=== PATIENT | male | born 1980 | race Caucasian/White ===

== ENCOUNTER 2016-06-13 15:41 | Emergency (ER) | payer SELFPAY ==
[~2016-06-13] VITALS: Ht 182.9 cm; Wt 68.0 kg
[2016-06-13 15:44] VITALS: BP 138/81; PULSE 94; RESP 16; TEMP 97.8; O2SAT 98
--- NOTE | 2016-06-13 16:18 | PD ---
HPI Chief Complaint: Skin Problem Time Seen by Provider: 16:07 Travel History International Travel<30 days: No Contact w/Intl Traveler<30days: No Traveled to known affect area: No History of Present Illness HPI 36-year-old male with history of bipolar disorder presents to the emergency room voluntarily for evaluation of suicidal ideation. Patient states he has been depressed since his mother 2 months ago. States he was kicked out of his house in [place] 1 week ago and has since developed suicidal ideation. He came down from [place] yesterday, sleeping last night on the bus. States he came to [place] because he has a cousin here. His plan is to overdose on medication. Patient uses Xanax and K2 recreationally. History of alcohol abuse. He last drink 1 pint of vodka yesterday. Denies any alcohol use today. Denies any other illicit drug use. Denies hallucinations or delusions. States he was on Depakote when he was 17 years old but has not been on it since because he cannot afford it. Patient presents to the ED with cleanser all over his face stating he was concerned about blisters. [facility] Social History Tobacco Use: Yes Allergies-Medications (Allergen,Severity, Reaction): Coded Allergies: No Known Allergies (Unverified , 06/13/16) Reported Meds & Prescriptions Reported Meds & Active Scripts Active No Active Prescriptions or Reported Medications Review of Systems Except as stated in HPI: all other systems reviewed are Neg Physical Exam Narrative GENERAL: Well-nourished, well-developed male in no acute distress. Afebrile. Ambulatory. SKIN: Warm and dry. No facial blisters. HEAD: Normocephalic. EYES: No scleral icterus. No injection or drainage. NECK: Supple, trachea midline. No JVD or lymphadenopathy. CARDIOVASCULAR: Regular rate and rhythm without murmurs, gallops, or rubs. RESPIRATORY: Breath sounds equal bilaterally. No accessory muscle use. PSYCHIATRIC: No delusional thought processes. No hallucinations. Data Data Last Documented VS Vital Signs Date Time Temp Pulse Resp B/P Pulse Ox O2 Delivery O2 Flow Rate FiO2 06/13/16 15:55 16 06/13/16 15:44 97.8 94 138/81 98 Orders Complete Blood Count With Diff (06/13/16 16:04) Basic Metabolic Panel (Bmp) (06/13/16 16:04) Drug Screen, Random Urine (06/13/16 16:04) Alcohol (Ethanol) (06/13/16 16:04) Psych Screen (06/13/16 16:04) Labs Laboratory Tests Test 06/13/16 06/13/16 16:10 17:55 White Blood Count 5.9 TH/MM3 Red Blood Count 4.28 MIL/MM3 Hemoglobin 12.8 GM/DL Hematocrit 38.5 % Mean Corpuscular Volume 90.0 FL Mean Corpuscular Hemoglobin 30.0 PG Mean Corpuscular Hemoglobin 33.3 % Concent Red Cell Distribution Width 14.0 % Platelet Count 178 TH/MM3 Mean Platelet Volume 7.8 FL Neutrophils (%) (Auto) 52.0 % Lymphocytes (%) (Auto) 33.1 % Monocytes (%) (Auto) 8.7 % Eosinophils (%) (Auto) 5.6 % Basophils (%) (Auto) 0.6 % Neutrophils # (Auto) 3.1 TH/MM3 Lymphocytes # (Auto) 1.9 TH/MM3 Monocytes # (Auto) 0.5 TH/MM3 Eosinophils # (Auto) 0.3 TH/MM3 Basophils # (Auto) 0.0 TH/MM3 CBC Comment DIFF FINAL Differential Comment Sodium Level 143 MEQ/L Potassium Level 3.9 MEQ/L Chloride Level 106 MEQ/L Carbon Dioxide Level 31.1 MEQ/L Anion Gap 6 MEQ/L Blood Urea Nitrogen 13 MG/DL Creatinine 0.98 MG/DL Estimat Glomerular Filtration 88 ML/MIN Rate Random Glucose 93 MG/DL Calcium Level 8.8 MG/DL Ethyl Alcohol Level LESS THAN 3 MG/DL Urine Opiates Screen NEG Urine Barbiturates Screen NEG Urine Amphetamines Screen NEG Urine Benzodiazepines Screen NEG Urine Cocaine Screen NEG Urine Cannabinoids Screen NEG MDM Medical Decision Making Medical Screen Exam Complete: Yes Emergency Medical Condition: Yes Medical Record Reviewed: Yes Differential Diagnosis Suicidal ideation versus hallucinations versus schizophrenia versus bipolar disorder Narrative Course 36-year-old male with history of bipolar disorder presents to the emergency room voluntarily for evaluation of suicidal ideation. His plan is to overdose on medication. States he has been suicidal since his mother 2 months ago and he was kicked out of his house one week ago. Patient arrived from [place] to [place] this morning and slept on the bus last night. Concern for malingering. Patient is not taking any medication. He also reports concern for blisters on his face and presents with facial cleanser on his face. After having him remove the cleanser, there are no blisters or skin disturbances present. CBC and BMP are unremarkable. EtOH is negative. Drug screen is negative. Patient is medically cleared for psychiatric evaluation and disposition this time. Diagnosis Primary Impression: Medical clearance for psychiatric admission Scripts No Active Prescriptions or Reported Meds Condition: Gabbie Manjarrez Jun 13, 2016 16:18
[2016-06-13 16:19] LABS: AUTOMATED NEUTROPHIL # 3.1 TH/MM3 (1.8-7.7); BASOPHIL % 0.6 % (0.0-2.0); EOSINOPHIL # 0.3 TH/MM3 (0-0.4); EOSINOPHIL % 5.6 % (0.0-4.0); HEMATOCRIT 38.5 % (39.0-51.0); HEMO FLAGS DIFF FINAL; LYMPH % 33.1 % (9.0-44.0); LYMPHOCYTE # 1.9 TH/MM3 (1.0-4.8); MEAN CORPUSCULAR HGB CONC 33.3 % (32.0-36.0); MONO % 8.7 % (0.0-8.0); PLATELET COUNT 178 TH/MM3 (150-450); RED BLOOD COUNT 4.28 MIL/MM3 (4.50-5.90); WHITE BLOOD COUNT 5.9 TH/MM3 (4.0-11.0)
[2016-06-13 17:11] LABS: ANION GAP 6 MEQ/L (5-15); BICARBONATE 31.1 MEQ/L (21.0-32.0); BLOOD UREA NITROGEN 13 MG/DL (7-18); CHLORIDE 106 MEQ/L (98-107); GLOMERULAR FILTRATION RATE 88 ML/MIN (>89); POTASSIUM 3.9 MEQ/L (3.5-5.1); SODIUM (NA) 143 MEQ/L (136-145)
[2016-06-13 18:21] LABS: AMPHETAMINE, URINE NEG (NEG); BARBITURATES, URINE NEG (NEG); COCAINE, URINE NEG (NEG)
[2016-06-13 23:01] VITALS: BP 140/80; PULSE 88; RESP 18; O2SAT 97
[2016-06-14 02:42] VITALS: BP 102/52; PULSE 55; RESP 16
[2016-06-14 06:27] VITALS: BP 102/63; PULSE 67; RESP 16; O2SAT 99
[2016-06-14 10:40] VITALS: BP 100/50; PULSE 53; RESP 16; O2SAT 98
--- NOTE | 2016-06-14 13:00 | PD ---
History of Present Illness Chief Complaint: Psychiatric Symptoms Time Seen by Provider: 12:45 Travel History International Travel<30 Days: No Contact w/Intl Traveler<30days: No Known affected area: No Legal Status Legal Status: Voluntary History of Present Illness: History of Present Illness 36-year-old male with a reported history of bipolar disorder who presents to the emergency room voluntarily for psychiatric evaluation. As per ed documentation the patient's mother 2 months ago and he was thrown out of the family home. He took a bus to [place] and arrived here to stay with a cousin. reported suicidal ideation x 1 week with plan of overdosing on medication. He reported use of alcohol, Xanax and K 2. presents with negative toxicology Patient has been monitored in [facility]. no behavioral concerns and no suicidality. he slept well and ate well. Patient this morning is alert and oriented. Calm and cooperative. Appears to be of low intellectual functioning. Speech is clear . He does not appear to be responding to internal stimuli. Does not endorse any hallucinations or delusions. He reports that his mother 2 months ago and that he came to [place] " because it's warm here". His suicidal thoughts began " a couple of days ago". He has not acted on such thoughts. He reports feeling sadness over his mother's . No social ideation or plan at this time. In terms of previous history he states he was hospitalized in the past but unable to tell me how long ago. When I asked about previous symptoms he is unable to provide any specific symptoms. PFSH Past Medical History Chest Pain: Yes Tetanus Vaccination: > 5 Years Influenza Vaccination: Yes (UNKNOWN DATE ) Psychiatric History Psychiatric History Hx Psychiatric Treatment: DENIED HX Later reported one prior hosp History of Inpatient Treatment: Yes (In [place] ) Guns or firearms in home: No Social History Single male, recently relocated to [facility]. Hx Alcohol Use: Yes ("A LOT") Hx Tobacco Use: Yes Hx Substance Use: Yes Substance Use Type: Alcohol, Marijuana, Nicotine/Cigarettes Hx of Substance Use Treatment: No Family Psychiatric History None reported. Allergies-Medications (Allergen,Severity, Reaction): Coded Allergies: No Known Allergies (Unverified , 06/13/16) Reported Meds & Prescriptions Reported Meds & Active Scripts Active No Active Prescriptions or Reported Medications Review of Systems Except as stated in HPI: all other systems reviewed are Neg Exam Alert: Yes [place]: Person (ox4) Mood: Calm Affect: Euthymic Speech: Clear, Logical Eye Contact: Normal Memory Intact: Comment (denies any) Hallucinations: Other (denies) Delusions: No Suicidal: Ideation (denies any) Homicidal: Ideation (denies any) Insight/Judgement Poor. Poor MDM Medical Decision Making Medical Record Reviewed: Yes Assessment/Plan 36 year old male under a voluntary status for suicidal ideation. At this time patient not presenting any suicidal ideation, intent or plan. No psychosis or kamilla. At this time he does not meet criteria for inpatietn tretametn. Will be discharged with follow up at [facility] tomorrow. Orders Complete Blood Count With Diff (06/13/16 16:04) Basic Metabolic Panel (Bmp) (06/13/16 16:04) Drug Screen, Random Urine (06/13/16 16:04) Alcohol (Ethanol) (06/13/16 16:04) Psych Screen (06/13/16 16:04) Diet Regular Basic (06/14/16 Breakfast) Diet Regular Basic (06/14/16 Lunch) Results Vital Signs Date Time Temp Pulse Resp B/P Pulse Ox O2 Delivery O2 Flow Rate FiO2 06/14/16 10:40 53 16 100/50 98 06/14/16 06:27 67 16 102/63 99 06/14/16 02:42 55 16 102/52 06/13/16 23:01 88 18 140/80 97 Room Air 06/13/16 15:55 16 06/13/16 15:44 97.8 94 16 138/81 98 Laboratory Tests Test 06/13/16 06/13/16 16:10 17:55 White Blood Count 5.9 Red Blood Count 4.28 Hemoglobin 12.8 Hematocrit 38.5 Mean Corpuscular Volume 90.0 Mean Corpuscular Hemoglobin 30.0 Mean Corpuscular Hemoglobin 33.3 Concent Red Cell Distribution Width 14.0 Platelet Count 178 Mean Platelet Volume 7.8 Neutrophils (%) (Auto) 52.0 Lymphocytes (%) (Auto) 33.1 Monocytes (%) (Auto) 8.7 Eosinophils (%) (Auto) 5.6 Basophils (%) (Auto) 0.6 Neutrophils # (Auto) 3.1 Lymphocytes # (Auto) 1.9 Monocytes # (Auto) 0.5 Eosinophils # (Auto) 0.3 Basophils # (Auto) 0.0 CBC Comment DIFF FINAL Differential Comment Sodium Level 143 Potassium Level 3.9 Chloride Level 106 Carbon Dioxide Level 31.1 Anion Gap 6 Blood Urea Nitrogen 13 Creatinine 0.98 Estimat Glomerular Filtration 88 Rate Random Glucose 93 Calcium Level 8.8 Ethyl Alcohol Level LESS THAN 3 Urine Opiates Screen NEG Urine Barbiturates Screen NEG Urine Amphetamines Screen NEG Urine Benzodiazepines Screen NEG Urine Cocaine Screen NEG Urine Cannabinoids Screen NEG Diagnosis Primary Impression: adjustment disorder with depressed mood Psychiatrically Cleared: Yes Prescriptions No Active Prescriptions or Reported Meds Disposition: 01 DISCHARGE HOME Condition: Stable Lisa Donaldson Jun 14, 2016 13:00
[2016-06-14 14:12] VITALS: BP_SYST 138; BP_SYST 98; BP_DIAS 54; BP_DIAS 73; PULSE 55; PULSE 75; RESP 16; O2SAT 97; O2SAT 98
[2016-06-14 15:31] VITALS: BP 98/54; PULSE 55; RESP 16; O2SAT 98
== END 2016-06-14 18:29 | disposition home or self-care (01) ==
LOC: NEPA 15:41 → NEPJ 06-14 18:29
DX: F43.21 Adjustment disorder with depressed mood (principal)
CPT/HCPCS: 80048; 80307; 80320; 85025; 99285

== ENCOUNTER 2016-07-08 11:25 | Emergency (ER) | payer SELFPAY ==
[~2016-07-08] VITALS: Ht 182.9 cm; Wt 70.0 kg
[2016-07-08 11:28] VITALS: BP 96/53; PULSE 78; RESP 20; TEMP 98.1; O2SAT 94
[2016-07-08] MEDS ORDERED: SODIUM CHLOR 0.9% 1000 ML INJ 1,000 ML IV ONE ×2 (11:30)
[2016-07-08] MEDS ORDERED: SODIUM CHLORIDE 0.9% FLUSH 5 ML FLUSH IVF PRN (11:30)
--- NOTE | 2016-07-08 11:32 | PD ---
HPI Chief Complaint: Alcohol/Drug Intoxication Time Seen by Provider: 11:32 Travel History International Travel<30 days: No Contact w/Intl Traveler<30days: No History of Present Illness HPI Patient is a 36-year-old male brought in by the EMS after a passerby saw him sitting on the side of the road. The police were called initially and the police called EMS. Patient admits to drinking alcohol this morning. Patient has no physical complaints at this time. Patient denies any significant past medical history. He denies any IV drug use. Patient further denies any suicidal or homicidal ideations. [facility] Past Medical History Medical History: Denies Significant Hx Chest Pain: Yes Social History Alcohol Use: Yes ("A LOT") Tobacco Use: Yes Substance Use: No Allergies-Medications (Allergen,Severity, Reaction): Coded Allergies: No Known Allergies (Unverified , 06/13/16) Reported Meds & Prescriptions Reported Meds & Active Scripts Active No Active Prescriptions or Reported Medications Review of Systems ROS Limitations: Intoxication Except as stated in HPI: all other systems reviewed are Neg Psychiatric: Positive: Substance Abuse, No: Suicidal Ideations, Homicidal Ideation Physical Exam Narrative GENERAL: Thin, well-developed, intoxicated-appearing white male. Resting comfortably in no acute distress. SKIN: Warm and dry. HEAD: Atraumatic. Normocephalic. EYES: Pupils equal and round. No scleral icterus. No injection or drainage. ENT: No nasal bleeding or discharge. Mucous membranes pink and moist. NECK: Trachea midline. No JVD. CARDIOVASCULAR: Regular rate and rhythm. No murmur appreciated. RESPIRATORY: No accessory muscle use. Clear to auscultation. Breath sounds equal bilaterally. GASTROINTESTINAL: Abdomen soft, non-tender, nondistended. Hepatic and splenic margins not palpable. MUSCULOSKELETAL: No obvious deformities. No clubbing. No cyanosis. No edema. NEUROLOGICAL: Awake and alert. No obvious cranial nerve deficits. Motor grossly within normal limits. Normal speech. PSYCHIATRIC: Appropriate mood and flat affect; insight and judgment normal. Data Data Last Documented VS Vital Signs Date Time Temp Pulse Resp B/P Pulse Ox O2 Delivery O2 Flow Rate FiO2 07/08/16 11:28 98.1 78 20 96/53 94 Orders Complete Blood Count With Diff (07/08/16 11:28) Comprehensive Metabolic Panel (07/08/16 11:28) Urinalysis - C+S If Indicated (07/08/16 11:28) Oximetry (07/08/16 11:28) Iv Access Insert/Monitor (07/08/16 11:28) Ecg Monitoring (07/08/16 11:28) Sodium Chloride 0.9% Flush (Ns Flush) (07/08/16 11:30) Drug Screen, Random Urine (07/08/16 11:28) Alcohol (Ethanol) (07/08/16 11:28) Salicylates (Aspirin) (07/08/16 11:28) Tylenol (Acetaminophen) (07/08/16 11:28) Sodium Chlor 0.9% 1000 Ml Inj (Ns 1000 M (07/08/16 11:30) Sodium Chlor 0.9% 1000 Ml Inj (Ns 1000 M (07/08/16 11:30) Diet Regular Basic (07/08/16 Lunch) Vital Signs (Adult) ENRIQUETA.Q4H (07/08/16 14:00) Labs Laboratory Tests Test 07/08/16 07/08/16 11:37 13:34 White Blood Count 5.7 TH/MM3 Red Blood Count 4.30 MIL/MM3 Hemoglobin 13.0 GM/DL Hematocrit 38.3 % Mean Corpuscular Volume 88.9 FL Mean Corpuscular Hemoglobin 30.1 PG Mean Corpuscular Hemoglobin 33.9 % Concent Red Cell Distribution Width 13.8 % Platelet Count 172 TH/MM3 Mean Platelet Volume 7.9 FL Neutrophils (%) (Auto) 44.6 % Lymphocytes (%) (Auto) 42.8 % Monocytes (%) (Auto) 7.8 % Eosinophils (%) (Auto) 4.1 % Basophils (%) (Auto) 0.7 % Neutrophils # (Auto) 2.5 TH/MM3 Lymphocytes # (Auto) 2.4 TH/MM3 Monocytes # (Auto) 0.4 TH/MM3 Eosinophils # (Auto) 0.2 TH/MM3 Basophils # (Auto) 0.0 TH/MM3 CBC Comment DIFF FINAL Differential Comment Sodium Level 143 MEQ/L Potassium Level 3.7 MEQ/L Chloride Level 110 MEQ/L Carbon Dioxide Level 26.9 MEQ/L Anion Gap 6 MEQ/L Blood Urea Nitrogen 10 MG/DL Creatinine 0.77 MG/DL Estimat Glomerular Filtration 116 ML/MIN Rate Random Glucose 85 MG/DL Calcium Level 7.8 MG/DL Total Bilirubin 0.2 MG/DL Aspartate Amino Transf 12 U/L (AST/SGOT) Alanine Aminotransferase 14 U/L (ALT/SGPT) Alkaline Phosphatase 63 U/L Total Protein 6.1 GM/DL Albumin 3.5 GM/DL Salicylates Level 2.6 MG/DL Acetaminophen Level LESS THAN 2.0 MCG/ML Ethyl Alcohol Level 138 MG/DL Urine Color YELLOW Urine Turbidity CLEAR Urine pH 5.0 Urine Specific [place] 1.011 Urine Protein NEG mg/dL Urine Glucose (UA) NEG mg/dL Urine Ketones NEG mg/dL Urine Occult Blood NEG Urine Nitrite NEG Urine Bilirubin NEG Urine Urobilinogen LESS THAN 2.0 MG/DL Urine Leukocyte Esterase NEG Urine WBC 1 /hpf Urine Mucus FEW /lpf Microscopic Urinalysis Comment CULT NOT INDICATED Urine Opiates Screen NEG Urine Barbiturates Screen NEG Urine Amphetamines Screen NEG Urine Benzodiazepines Screen NEG Urine Cocaine Screen NEG Urine Cannabinoids Screen NEG MDM Medical Decision Making Medical Screen Exam Complete: Yes Emergency Medical Condition: Yes Interpretation(s) Laboratory Tests Test 07/08/16 07/08/16 11:37 13:34 White Blood Count 5.7 TH/MM3 Red Blood Count 4.30 MIL/MM3 Hemoglobin 13.0 GM/DL Hematocrit 38.3 % Mean Corpuscular Volume 88.9 FL Mean Corpuscular Hemoglobin 30.1 PG Mean Corpuscular Hemoglobin 33.9 % Concent Red Cell Distribution Width 13.8 % Platelet Count 172 TH/MM3 Mean Platelet Volume 7.9 FL Neutrophils (%) (Auto) 44.6 % Lymphocytes (%) (Auto) 42.8 % Monocytes (%) (Auto) 7.8 % Eosinophils (%) (Auto) 4.1 % Basophils (%) (Auto) 0.7 % Neutrophils # (Auto) 2.5 TH/MM3 Lymphocytes # (Auto) 2.4 TH/MM3 Monocytes # (Auto) 0.4 TH/MM3 Eosinophils # (Auto) 0.2 TH/MM3 Basophils # (Auto) 0.0 TH/MM3 CBC Comment DIFF FINAL Differential Comment Sodium Level 143 MEQ/L Potassium Level 3.7 MEQ/L Chloride Level 110 MEQ/L Carbon Dioxide Level 26.9 MEQ/L Anion Gap 6 MEQ/L Blood Urea Nitrogen 10 MG/DL Creatinine 0.77 MG/DL Estimat Glomerular Filtration 116 ML/MIN Rate Random Glucose 85 MG/DL Calcium Level 7.8 MG/DL Total Bilirubin 0.2 MG/DL Aspartate Amino Transf 12 U/L (AST/SGOT) Alanine Aminotransferase 14 U/L (ALT/SGPT) Alkaline Phosphatase 63 U/L Total Protein 6.1 GM/DL Albumin 3.5 GM/DL Salicylates Level 2.6 MG/DL Acetaminophen Level LESS THAN 2.0 MCG/ML Ethyl Alcohol Level 138 MG/DL Urine Color YELLOW Urine Turbidity CLEAR Urine pH 5.0 Urine Specific [place] 1.011 Urine Protein NEG mg/dL Urine Glucose (UA) NEG mg/dL Urine Ketones NEG mg/dL Urine Occult Blood NEG Urine Nitrite NEG Urine Bilirubin NEG Urine Urobilinogen LESS THAN 2.0 MG/DL Urine Leukocyte Esterase NEG Urine WBC 1 /hpf Urine Mucus FEW /lpf Microscopic Urinalysis Comment CULT NOT INDICATED Urine Opiates Screen NEG Urine Barbiturates Screen NEG Urine Amphetamines Screen NEG Urine Benzodiazepines Screen NEG Urine Cocaine Screen NEG Urine Cannabinoids Screen NEG Vital Signs Date Time Temp Pulse Resp B/P Pulse Ox O2 Delivery O2 Flow Rate FiO2 07/08/16 11:28 98.1 78 20 96/53 94 Differential Diagnosis Mood disorder versus substance abuse versus intoxication versus psychosis versus delirium versus other Narrative Course Patient is a 36-year-old male brought in by EMS after being found sitting on the side of the road publicly intoxicated. Patient is a physical complaints this time. Labs, IV fluids ordered and pending. Patient placed on telemetry monitoring, continuous pulse oximetry. IV access initiated. Patient received 2 L IV fluids, a meal tray. CBC is unremarkable, chemistry is unremarkable, tox screen is negative, salicylate level is 2.6, acetaminophen is less than 2.0, alcohol level is 138, urinalysis negative. Patient was observed sleeping, he is easily arousable. Patient will be allowed to sleep it off, when he can ambulate safely he'll be discharged from the emergency department. Patient is medically cleared this time. Diagnosis Primary Impression: Alcohol intoxication Qualified Code: F10.120 - Alcohol intoxication, uncomplicated Referrals: Primary Care Physician [facility] Patient Instructions: Abuse of Alcohol (ED), Alcohol Dependence (GEN), Alcohol Intoxication (DC), General Instructions Additional Instructions: Avoid excessive alcohol intake Maintain adequate fluid intake Follow-up at the [facility] Follow-up with a primary doctor or the community clinic Return to emergency department for any new or worsening symptoms Med/Other Pt SpecificInfo: No Change to Meds Scripts No Active Prescriptions or Reported Meds Disposition: 01 DISCHARGE HOME Condition: Stable Misa Armijo Jul 08, 2016 11:32
[2016-07-08 11:47] LABS: AUTOMATED NEUTROPHIL # 2.5 TH/MM3 (1.8-7.7); BASOPHIL % 0.7 % (0.0-2.0); EOSINOPHIL # 0.2 TH/MM3 (0-0.4); EOSINOPHIL % 4.1 % (0.0-4.0); HEMATOCRIT 38.3 % (39.0-51.0); HEMO FLAGS DIFF FINAL; LYMPH % 42.8 % (9.0-44.0); LYMPHOCYTE # 2.4 TH/MM3 (1.0-4.8); MEAN CELL VOLUME 88.9 FL (80.0-100.0); MEAN CORPUSCULAR HEMOGLOBIN 30.1 PG (27.0-34.0); MEAN CORPUSCULAR HGB CONC 33.9 % (32.0-36.0); MONO % 7.8 % (0.0-8.0); NEUT % 44.6 % (16.0-70.0); PLATELET COUNT 172 TH/MM3 (150-450); RED CELL DISTRIBUTION WIDTH 13.8 % (11.6-17.2); WHITE BLOOD COUNT 5.7 TH/MM3 (4.0-11.0)
[2016-07-08 12:02] LABS: ANION GAP 6 MEQ/L (5-15); AST (GOT) 12 U/L (15-37); BICARBONATE 26.9 MEQ/L (21.0-32.0); BLOOD UREA NITROGEN 10 MG/DL (7-18); CHLORIDE 110 MEQ/L (98-107); GLOMERULAR FILTRATION RATE 116 ML/MIN (>89); POTASSIUM 3.7 MEQ/L (3.5-5.1); SODIUM (NA) 143 MEQ/L (136-145)
[2016-07-08 12:05] LABS: ACETAMINOPHEN LESS THAN 2.0 MCG/ML (10.0-30.0); ALKALINE PHOSPHATASE 63 U/L (45-117); ALT (GPT) 14 U/L (12-78); TOTAL BILIRUBIN ADULT 0.2 MG/DL (0.2-1.0)
[2016-07-08 13:59] LABS: AMPHETAMINE, URINE NEG (NEG); BARBITURATES, URINE NEG (NEG); COCAINE, URINE NEG (NEG)
[2016-07-08 14:01] LABS: BLOOD, URINE NEG (NEG); COMMENT (UR) CULT NOT INDICATED; CULTURE IF INDICATED CULT NOT INDICATED; GLUCOSE,URINE NEG (NEG); KETONE, URINE NEG (NEG); MUCUS URINE FEW /lpf (OCC); NITRITE,URINE NEG (NEG); URINE COLOR YELLOW (YELLW/STRAW)
[2016-07-08 14:51] VITALS: BP 92/54; PULSE 70; RESP 20; O2SAT 95
== END 2016-07-08 17:22 | disposition home or self-care (01) ==
LOC: NEPE 11:25
DX: F10.129 Alcohol abuse with intoxication, unspecified (principal); Z72.0 Tobacco use; Y90.6 Blood alcohol level of 120-199 mg/100 ml
CPT/HCPCS: 80053; 80307; 80320; 81001; 85025; 99283; J7030; 80329; G0480